=== PATIENT | female | born 1990 | race Caucasian/White ===

== ENCOUNTER → 2021-04-26 14:15 | Outpatient (CLI) | payer SELFPAY ==
--- NOTE | 2021-04-26 14:20 | MR_ITS ---
PROCEDURE: MR HEAD/BRAIN WO CON CLINICAL INDICATION: NEURALGIA OF UPPER EXTREMITY, FAMILY HX OF MS Bilateral arm pain. Pain in neck with flexion and with picking up objects. Symptoms x3wks. No prior. COMPARISON: No exams were available for comparison TECHNIQUE: Routine multiplanar multi echo sequences are performed without gadolinium enhancement. Additional DIR sequences performed as well. FINDINGS: No midline shift, mass effect, intracranial hemorrhage, or hydrocephalus. The cerebellopontine angles, cerebellum, midbrain and brainstem have an unremarkable appearance. The pituitary, optic chiasm, corpus callosum, and craniocervical junction are unremarkable. No abnormal white matter signal intensity. No demyelinating plaques apparent. Double inversion recovery images show no demyelinating plaques. No mastoid effusion or sinus air-fluid level. IMPRESSION: Negative MRI of the brain without contrast Dictated by: John Persaud MD 04/27/2021 07:23 John Persaud MD in [facility] 04/27/2021 07:23
--- NOTE | 2021-04-26 14:20 | MR_ITS ---
PROCEDURE: MR CERVICAL SPINE WO CON CLINICAL INDICATION: NEURALGIA OF UPPER EXTREMITY, FAMILY HX OF MS Bilateral arm pain. Pain in neck with flexion and with picking up objects. Symptoms x3wks. No prior. COMPARISON: No exams were available for comparison TECHNIQUE: Standard multiplanar multiecho sequences are performed without contrast. 3-D MIP and myelographic images are also rendered and reviewed FINDINGS: There is normal alignment. The craniocervical junction has an unremarkable appearance. No disc herniation, canal stenosis, foraminal stenosis, intra or extradural mass, or significant degenerative change apparent. There is mild degree of motion artifact somewhat obscuring fine detail. The spinal cord has an unremarkable appearance. No demyelinating plaques apparent. IMPRESSION: Negative MRI of the cervical spine Dictated by: John Persaud MD 04/27/2021 07:17 John Persaud MD in [facility] 04/27/2021 07:17
== END ==
PROVIDERS: PCP Internal Medicine Adolescent Medicine; Visit Provider Internal Medicine Adolescent Medicine
DX: M79.2 Neuralgia and neuritis, unspecified (principal); Z82.0 Family history of epilepsy and other diseases of the nervous system
CPT/HCPCS: 70551; 72141; 76376

== ENCOUNTER → 2021-08-11 09:14 | Outpatient (CLI) | payer OTHER, BC, SELFPAY | PROVIDERS: PCP Internal Medicine Adolescent Medicine; Visit Provider Nurse Practitioner | DX: Z20.822 Contact with and (suspected) exposure to COVID-19 (principal) | CPT/HCPCS: C9803; U0003; U0005 ==

== ENCOUNTER → 2021-10-28 19:35 | Outpatient (CLI) | payer OTHER, SELFPAY | PROVIDERS: Visit Provider Nurse Practitioner Family | DX: U07.1 COVID-19 (principal); J02.9 Acute pharyngitis, unspecified | CPT/HCPCS: C9803; U0003; U0005 ==

== ENCOUNTER → 2022-12-07 06:42 | Outpatient (CLI) | payer BC, SELFPAY ==
[2022-12-07 07:39] LABS: Adenovirus F 40/41, stool Not Detected (NotDetected); Astrovirus Not Detected (NotDetected); Campylobacter Not Detected (NotDetected); Clostridium Difficile A/B, PCR Not Detected (NotDetected); Cryptosporidium Not Detected (NotDetected); Cyclospora Cayetanesis Not Detected (NotDetected); Entamoeba histolytica Not Detected (NotDetected); Enteroaggregative E coli Not Detected (NotDetected); Enteropathogenic E coli Not Detected (NotDetected); Enterotoxigenic E coli Not Detected (NotDetected); Giardia lamblia Not Detected (NotDetected); Norovirus Not Detected (NotDetected); Plesimonas Shigalloides, PCR Not Detected (NotDetected); Rotavirus A Not Detected (NotDetected); Salmonella, PCR Not Detected (NotDetected); Sapovirus Not Detected (NotDetected); Shiga-like toxin E coli Not Detected (NotDetected); Shigella Enterovasive E coli Not Detected (NotDetected); Vibrio Cholerae Not Detected (NotDetected); Vibrio, PCR Not Detected (NotDetected); Yersinia Entercolitica, PCR Not Detected (NotDetected)
[2022-12-07 07:48] LABS: Basophils % 0.5 % (0.1-2.0); Eosinophils # 0.4 K/mm3 (0.0-0.4); Eosinophils % 5.4 % (0.1-12.0); Hematocrit 37.4 % (37.0-47.0); Hemoglobin 12.4 g/dL (12.2-16.2); Lymphocytes # 2.3 K/mm3 (0.7-4.5); Lymphocytes % 30.1 % (10-50); Mean Corpuscular Hemoglobin 30.3 pg (27.0-31.2); Mean Corpuscular Volume 91.6 fl (81-99); Mean Platelet Volume 8.3 fl (7.4-10.4); Monocytes # 0.4 K/mm3 (0.1-1.0); Monocytes % 4.5 % (1.7-9.3); Neutrophils # 4.6 K/mm3 (1.8-7.8); Neutrophils % 59.5 % (37.0-80.0); Platelet Count 310 K/mm3 (142-424); Red Blood Count 4.09 M/mm3 (4.20-5.40); Red Cell Distribution Width 13.5 % (11.5-17.5); White Blood Count 7.7 K/mm3 (4.8-10.8)
[2022-12-07 08:10] LABS: Chloride 105 mmol/L (98-107); Potassium 4.2 mmoL/L (3.5-5.1); Sodium 138 mmol/L (136-145)
[2022-12-07 08:12] LABS: Amylase 42 U/L (30-110)
[2022-12-07 08:13] LABS: Alanine Aminotransferase 36 U/L (12-78); Albumin Level 4.2 g/dl (3.5-5.0); Albumin/Globulin Ratio 1.6 (1.1-1.8); Alkaline Phosphatase 118 U/L (38-126); Anion Gap 13.2 mEq/L (5-15); Aspartate Amino Transferase 29 U/L (14-36); Bilirubin,Total 0.5 mg/dl (0.2-1.3); Blood Urea Nitrogen 12 mg/dl (7-17); Calcium 8.8 mg/dl (8.4-10.2); Carbon Dioxide 24 mmol/L (22.0-30.0); Estimated Glomerular Filt Rate 98 ml/min (>60); GFR (African American) 119 ML/MIN (>60); Globulin 2.7 g/dL (1.3-3.2); Glucose 104 mg/dl (74-100); HDL Cholesterol 105 mg/dl (40-60); Lipase 82 U/L (23-300); Total Protein,Serum 6.9 g/dl (6.3-8.2)
[2022-12-07 08:14] LABS: Chol/HDL Ratio 1.8 (1-3.5); Cholesterol 193 mg/dl (140-200); Triglycerides 146 mg/dl (30-150); VLDL Cholesterol 29 mg/dL (0-40)
[2022-12-07 08:30] LABS: Direct LDL Cholesterol 78.02 mg/dL (100-129)
[2022-12-13 18:08] LABS: Lactoferrin, Fecal, Quant. 1.29 ug/mL(g) (0.00-7.24)
== END ==
PROVIDERS: PCP Internal Medicine Adolescent Medicine; Visit Provider Internal Medicine Adolescent Medicine
DX: Z00.00 Encounter for general adult medical examination without abnormal findings (principal); R10.84 Generalized abdominal pain; R19.7 Diarrhea, unspecified
CPT/HCPCS: 36415; 80053; 80061; 82150; 83630; 83690; 85025; 87205; 87507

== ENCOUNTER 2023-01-10 09:08 | Day surgery (SDC) | payer BC, SELFPAY ==
[2022-12-28 13:32] VITALS: BMI 36.6
[2023-01-10 09:40] VITALS: BP 122/82; PULSE 85; RESP 18; TEMP 36.6; O2SAT 100
[2023-01-10 09:47] LABS: Urine Pregnancy, HCG Qual. Negative (Negative)
--- NOTE | 2023-01-10 10:16 | EXP.ANES.CKL ---
[facility] Disclaimer: The information contained in this section may have been updated after the patient was seen, as this information can be updated by other users. Medical History Asthma History of gastroesophageal reflux (GERD) Surgical History History of section History of cholecystectomy History of wisdom tooth extraction, class IV edentulism Family History Other No significant family history Social History Smoking Status: Never smoker alcohol intake: current substance use type: denies use current occupational status: employed Travel in the last 8 weeks: None household members: family housing: house marital status: education level: high school caffeine: Yes special ronak needs: No agree to transfusion: No do you feel safe at home: Yes victim of physical abuse: No victim of emotional abuse: No victim of sexual abuse: No would you like helpful sources: No [facility] Anesthesia Checklist Patient Identification Patient Identification: Arm Band and Verbal (Name & ) Structural Data Admitted From: Home Planned Operative Procedure/s: Colonoscopy Consent for Planned Operative Procedure(s) Verified: Yes NPO Status Verified Time NPO: 00:00 Airway Assessment C-Spine Mobility Assessed: Yes TMJ Mobility Assessed: Yes Dentition: Good Dentition Neurological Assessment Level of Consciousness: Awake Hx Seizures: No Numbness or tingling in extremities: No Anesthesia Plan Anesthesia Risk discussed: Yes Anesthesia Plan: Verified ASA Class: II Anesthesia Type: MAC
[2023-01-10 10:19] VITALS: O2SAT 100
[2023-01-10 10:37] VITALS: BP 135/90; PULSE 103; RESP 18; TEMP 36.3; O2SAT 94
--- NOTE | 2023-01-10 10:38 | HMH.SCOPE ---
Procedure: Date: 01/10/23 Patient Date of :: 1990 Procedure Performed:: Colonoscopy Indications:: The patient is a 32 year old who presents for colonoscopy evaluation of diarrhea, urgent desire to stool Performing Provider:: Jaxon Butler MD Referring Provider:: Karel Bautista MD Sedation:: See RN records Procedure:: After placing the patient in the left lateral decubitus position, the colonoscopy was gently inserted into the rectum and under direct visualization advanced to the cecum which was identified by transillumination in the right lower quadrant, identification of the ileocecal valve, appendiceal orifice, and cecal strap. Color, texture, mucosa, and anatomy of the colon were carefully examined with the scope. Findings:: Anal canal: normal Rectum: normal Sigmoid colon: normal without polyps or inflammatory changes Descending colon: normal without polyps or inflammatory changes Splenic flexure: normal Transverse colon: normal without polyps or inflammatory changes Hepatic flexure: normal Ascending colon: normal without polyps or inflammatory changes Cecum: normal Terminal ileum: mild appearing inflammatory changes and irritation. Biopsies obtained Impression: Mild inflammatory changes of terminal ileum Recommendations:: Await pathology results Complications:: None Estimated blood obtained (mL): 0
[2023-01-10 10:47] VITALS: BP 161/97; PULSE 100; RESP 16; O2SAT 97
[2023-01-10 10:57] VITALS: BP 145/82; PULSE 88; RESP 16; O2SAT 99
[2023-01-10 11:07] VITALS: BP 140/77; PULSE 87; RESP 16; TEMP 36.6; O2SAT 100
== END 2023-01-10 11:10 | disposition home or self-care (01) ==
PROVIDERS: PCP Internal Medicine Adolescent Medicine; Visit Provider Internal Medicine
PROC: 0DJD8ZZ Inspection of Lower Intestinal Tract, Via Natural or Artificial Opening Endoscopic (ICD-10-PCS; CPT 45378; principal; 2023-01-10 10:30)
DX: R19.7 Diarrhea, unspecified (principal); Z79.899 Other long term (current) drug therapy
CPT/HCPCS: 45380; 81025; J2704

== ENCOUNTER 2023-12-23 11:05 | Emergency (ER) | payer BC, SELFPAY ==
[2023-12-23 11:45] VITALS: BP 140/95; PULSE 112; RESP 20; TEMP 36.8; O2SAT 97; BMI 35.8
[2023-12-23 11:56] LABS: UTC Influenza A Antigen Negative (Negative); UTC Influenza B Antigen Positive (Negative)
--- NOTE | 2023-12-23 12:06 | ED_ITS ---
Discharge Plan Disposition Patient Disposition: Home, Self-Care Condition: Good Prescriptions Prescriptions: New dextromethorphan polistirex [Delsym 12 hour] 30 mg/5 mL suspension,extended rel 12 hr 10 ml PO Q12H PRN (Reason: cough) Qty: 89 0RF No Action norgestimate-ethinyl estradiol [Sprintec (28)] 0.25-35 mg-mcg tablet 1 tab PO ONCE omeprazole 20 mg capsule,delayed release(DR/EC) 60 mg PO DAILY Patient Comments: TAKE 1 CAPSULE BY MOUTH ONCE DAILY budesonide-formoterol 160-4.5 mcg/actuation HFA aerosol inhaler 160 inh INHALATION DAILY Patient Comments: INHALE 2 PUFFS BY MOUTH TWICE DAILY RINSE MOUTH AFTER EACH USE albuterol sulfate 90 mcg/actuation HFA aerosol inhaler 1 ea inhalation DAILY Patient Comments: INHALE 2 PUFFS BY MOUTH EVERY 6 HOURS NEEDED colestipol 1 gram tablet 1 g PO BID Qty: 120 4RF cetirizine [Zyrtec] 10 mg Tablet 10 mg PO DAILY Referrals Follow up/Referrals: Karel Bautista MD [Primary Care Provider] - See instructions Activity Restrictions/Add. Instructions Additional Instructions/Restrictions: * Too late to start Tamiflu. Most effective when started within 48 hours of symptoms onset * Lots of rest * Increase Fluids water, Gatorade, powerade, pedialyte,if infant/tod dler/child * Alternate Tylenol and / or ibuprofen as discussed for fever, aches, chills Follow up IMMEDIATELY with your family doctor for new or worsening Symptoms OR no noticeable improvement over the next 48-72 hours, 911 for difficulty or breathing * You or your child area contagious until no fever, aches, chills for 24 hours with medication for symptoms * Help Prevent the spread of influenza: * ?Wash your hands often. Use soap and water. Wash your hands after you use the bathroom, change a child's diapers, or sneeze. Wash your hands before you prepare or eat food. Use gel hand cleanser that has 60% alcohol, when soap and water are not available. Do not touch your eyes, nose, or mouth unless you have washed your hands first. * Cover your mouth when you sneeze or cough. Cough into a tissue or the bend of your arm. If you use a tissue, throw it away immediately and wash your hands. * Clean shared items with a germ-killing office cleaner. Clean table surfaces, doorknobs, and light switches. Do not share towels, silverware, and dishes with people who are sick. Wash bed sheets, towels, silverware, and dishes with soap and water. * Wear a mask over your mouth and nose if you are sick. The face mask may help protect others from becoming infected with the flu. Wear the mask when in common areas of your home or if you seek care with a healthcare provider. * Stay away from others if you are sick. Stay at home until 24 hours after your fever and symptoms are gone. Clinical Impressions Clinical Impression: Influenza Stand Alone Forms Stand Alone Forms: Work/School Release Instructions Patient Instructions: DI for Influenza -- Adult, Influenza Discharge ED Provider: Carol Pastrana [facility] General Stated complaint: Sor throat, body aches, cough, Mode of Arrival: Ambulatory Source of Information: Patient Limitations: No Limitations Time Seen by Provider: 12/23/23 12:06 Description of Symptoms (Recalled from Triage Doc. by RN): PATIENT C/O BODY ACHES, CHILLS, SORE THROAT, HEADACHE, VOMITING, AND COUGH SINCE SUNDAY. SHE STATES SHE IS BEING TREATED FOR STREP BUT IS NOT BETTER HEENT Symptoms (Recalled from RN notes): Yes Resp Symptoms (Recalled from RN notes): Yes Skin Symptoms (Recalled from RN notes): No MS Symptoms (Recalled from RN notes): No Functional Status (Recalled from RN notes): WNL History of Present Illness Provider Complaint: Patient states that she started feeling bad on Sun and she went to the Doctor on having fever, chills sore throat, body aches, and headache States she was tested for flu and strep throat and was positive for strep States that she has been taking her medication but still having body ache, nasal congestion and headaches feels like she may have flu also now Related Data Home Medications Medication Instructions Recorded Confirmed norgestimate 0.25 mg-ethinyl 1 tab PO ONCE control 02/26/18 12/23/23 estradiol 35 mcg tablet (Sprintec (28)) budesonide-formoterol HFA 160 160 inh inhalation DAILY Asthma 11/06/19 12/23/23 mcg-4.5 mcg/actuation aerosol inhaler omeprazole 20 mg capsule,delayed 60 mg PO DAILY Reflux/Acid reflux 11/06/19 12/23/23 release albuterol sulfate 90 mcg/actuation 1 ea inhalation DAILY 01/18/23 12/23/23 aerosol inhaler cetirizine 10 mg tablet (Zyrtec) 10 mg PO DAILY 12/23/23 12/23/23 Previous Rx's Medication Instructions Recorded colestipol 1 gram tablet 1 g PO BID #120 tabs 01/18/23 dextromethorphan polistirex 30 10 ml PO Q12H PRN cough #89 mL 12/23/23 mg/5 mL oral susp ext.release 12hr (Delsym 12 hour) Allergies Allergy/AdvReac Type Severity Reaction Status Date / Time Penicillins Allergy Mild Verified 01/18/23 14:20 Worker's Comp Is this a Worker's Comp case?: No [facility] Disclaimer: The information contained in this section may have been updated after the patient was seen, as this information can be updated by other users. Medical History Asthma History of gastroesophageal reflux (GERD) Surgical History History of section History of cholecystectomy History of wisdom tooth extraction, class IV edentulism Family History Other No significant family history Social History Smoking Status: Never smoker alcohol intake: current substance use type: denies use current occupational status: employed Travel in the last 8 weeks: None household members: family housing: house marital status: education level: high school caffeine: Yes special ronak needs: No agree to transfusion: No do you feel safe at home: Yes victim of physical abuse: No victim of emotional abuse: No victim of sexual abuse: No would you like helpful sources: No ROS Obtained: Yes All systems reviewed & no additional complaints except as d ocumented and Yes Systems reviewed as appropriate & no additional complaints except as documented Constitutional Constitutional: Reports system reviewed and no additional complaints, except as documented, Reports as per HPI, Reports body ache, Reports chills, Reports fever(s) and Reports headache(s) ENT Ears, Nose, Mouth, and Throat: Reports system reviewed and no additional complaints, except as documented, Reports as per HPI, Reports headache(s), Reports nasal congestion and Reports sore throat Cardiovascular Cardiovascular: Reports system reviewed and no additional complaints, except as documented and Reports as per HPI Respiratory Respiratory: Reports system reviewed and no additional complaints, except as documented, Reports as per HPI and Reports cough Gastrointestinal Gastrointestingal: Reports system reviewed and no additional complaints, except as documented and as per HPI Neurologic Neurologic: Reports headache(s) Physical Exam General General appearance: alert and in no apparent distress ENT ENT exam: Present mucous membranes moist Expanded ENT Exam Nose exam: Absent sinus tenderness Respiratory Respiratory exam: Present normal lung sounds bilaterally; Absent respiratory distress or wheezes Cardiovascular Cardiovascular exam: Present regular rate, normal rhythm and tachycardia Neurological Exam Neurological exam: Present alert, oriented X3 and normal gait Medical Decision Making Sánchez Inquiry Pt receiving controlled substance: No Sánchez was queried for this patient: No Vital Signs: 12/23/23 11:45 Temperature 98.3 F Temperature Source Oral Pulse Rate [Left Brachial] 112 H Respiratory Rate 20 Blood Pressure [Left Arm] 140/95 H Blood Pressure Mean [Left Arm] 110 Blood Pressure Source [Left Arm] Automatic Cuff Blood Pressure Position [Left Arm] Sitting 02 Sat by Pulse Oximetry 97 Oxygen Delivery Method Room Air Lab Data Lab results reviewed: Yes I reviewed the patient's lab results. Lab Results 12/23/23 11:53: Influenza Type A Ag Negative, Influenza Type B Ag Positive A
[2023-12-23 12:09] VITALS: BP 140/95; PULSE 112; RESP 20; TEMP 36.8; O2SAT 97
== END 2023-12-23 12:15 | disposition home or self-care (01) ==
PROVIDERS: Emergency Provider Nurse Practitioner; PCP Internal Medicine Adolescent Medicine
DX: J10.1 Influenza due to other identified influenza virus with other respiratory manifestations (principal); R51.9 Headache, unspecified; R05.9 Cough, unspecified; R50.9 Fever, unspecified; R09.81 Nasal congestion; R07.0 Pain in throat; M79.18 Myalgia, other site; K21.9 Gastro-esophageal reflux disease without esophagitis
CPT/HCPCS: 87804; 99204; 99212; G0463

== ENCOUNTER 2024-02-22 15:35 | Outpatient (CLI) | payer BC, SELFPAY ==
--- NOTE | 2024-02-22 15:41 | XR_ITS ---
FINAL REPORT CLINICAL HISTORY: MILD INTERMITTENT ASTHMA WITH EXACERBATION FINDINGS: No acute pulmonary density is evident. There is no evidence of effusion or other pleural disease. The mediastinum has a normal appearance. The cardiac silhouette is unremarkable. IMPRESSION: Unremarkable chest exam. Reviewed, Interpreted and Dictated by Alexi Duckworth MD Transcribed by Mae Huizar Authenticated and [facility]
== END 2024-02-22 23:59 | disposition home or self-care (01) ==
LOC: RAD 15:37
PROVIDERS: PCP Physician Assistant; Visit Provider Physician Assistant
DX: J45.20 Mild intermittent asthma, uncomplicated (principal)
CPT/HCPCS: 71046

== ENCOUNTER 2024-03-29 08:56 | Emergency (ER) | payer BC, SELFPAY ==
[2024-03-29 09:05] VITALS: BP 147/95; PULSE 84; RESP 18; TEMP 36.8; O2SAT 99; BMI 37.3
[2024-03-29 09:32] LABS: UTC Strep Screen (Rapid) Negative (Negative)
--- NOTE | 2024-03-29 09:39 | ED_ITS ---
Discharge Plan Disposition Patient Disposition: Home, Self-Care Condition: Good Prescriptions Prescriptions: New azithromycin 250 mg tablet 250 mg PO DIRECTED Qty: 6 0RF Rx Instructions: Take two (2) tablets on day #1, then one (1) tablet day #2 thru #5 No Action norgestimate-ethinyl estradiol [Sprintec (28)] 0.25-35 mg-mcg tablet 1 tab PO ONCE omeprazole 20 mg capsule,delayed release(DR/EC) 60 mg PO DAILY Patient Comments: TAKE 1 CAPSULE BY MOUTH ONCE DAILY budesonide-formoterol 160-4.5 mcg/actuation HFA aerosol inhaler 160 inh INHALATION DAILY Patient Comments: INHALE 2 PUFFS BY MOUTH TWICE DAILY RINSE MOUTH AFTER EACH USE albuterol sulfate 90 mcg/actuation HFA aerosol inhaler 1 ea inhalation DAILY Patient Comments: INHALE 2 PUFFS BY MOUTH EVERY 6 HOURS NEEDED colestipol 1 gram tablet 1 g PO BID Qty: 120 4RF cetirizine [Zyrtec] 10 mg Tablet 10 mg PO DAILY dextromethorphan polistirex [Delsym 12 hour] 30 mg/5 mL suspension,extended rel 12 hr 10 ml PO Q12H PRN (Reason: cough) Qty: 89 0RF Referrals Follow up/Referrals: Ella Murguia PA [Primary Care Provider] - See instructions Activity Restrictions/Add. Instructions Additional Instructions/Restrictions: Start antibiotics today be sure to take it as ordered with the full length of time although you should start feeling better in 24-48 hours. Change toothbrush and toothpaste 24-48 hours after starting antibiotics Tylenol or Motrin as needed for fever or pain Encourage fluids, water, Gatorade, Powerade, try cold fluids, popsicles, ice cream will make it feel better You are contagious for 24 hours. Avoid kissing anyone, no eating or drinking after anyone. You are contagious. Follow-up the ER for new or worsening symptoms or no noticeable improvement over the next 24-48 hours. Follow-up with PCP this week. Clinical Impressions Clinical Impression: Strep sore throat Instructions Patient Instructions: DI for Strep Throat Discharge ED Provider: Mariia ([facility] [place])Sly [facility] HPI General Stated complaint: sore throat Mode of Arrival: Ambulatory Source of Information: Patient Limitations: No Limitations Time Seen by Provider: 03/29/24 09:39 Description of Symptoms (Recalled from Triage Doc. by RN): PATIENT C/O SORE THROAT, RUNNY NOSE AND EAR PAIN X 2 DAYS HEENT Symptoms (Recalled from RN notes): Yes Resp Symptoms (Recalled from RN notes): No Skin Symptoms (Recalled from RN notes): No MS Symptoms (Recalled from RN notes): No Functional Status (Recalled from RN notes): WNL History of Present Illness Provider Complaint: 34 yr old female presents for sore throat, ear pain and runny nose for 2 days, hx strep and states feels like it does when she has strep Related Data Home Medications Medication Instructions Recorded Confirmed norgestimate 0.25 mg-ethinyl 1 tab PO ONCE control 02/26/18 12/23/23 estradiol 35 mcg tablet (Sprintec (28)) budesonide-formoterol HFA 160 160 inh inhalation DAILY Asthma 11/06/19 12/23/23 mcg-4.5 mcg/actuation aerosol inhaler omeprazole 20 mg capsule,delayed 60 mg PO DAILY Reflux/Acid reflux 11/06/19 12/23/23 release albuterol sulfate 90 mcg/actuation 1 ea inhalation DAILY 01/18/23 12/23/23 aerosol inhaler cetirizine 10 mg tablet (Zyrtec) 10 mg PO DAILY 12/23/23 12/23/23 Previous Rx's Medication Instructions Recorded colestipol 1 gram tablet 1 g PO BID #120 tabs 01/18/23 dextromethorphan polistirex 30 10 ml PO Q12H PRN cough #89 mL 12/23/23 mg/5 mL oral susp ext.release 12hr (Delsym 12 hour) azithromycin 250 mg tablet 250 mg PO DIRECTED #6 tabs 03/29/24 Allergies Allergy/AdvReac Type Severity Reaction Status Date / Time Penicillins Allergy Mild Verified 01/18/23 14:20 Worker's Comp Is this a Worker's Comp case?: No [facility] Disclaimer: The information contained in this section may have been updated after the patient was seen, as this information can be updated by other users. Medical History , [employer]) Asthma History of gastroesophageal reflux (GERD) Surgical History , [employer]) History of wisdom tooth extraction, class IV edentulism History of cholecystectomy History of section Family History , [employer]) No significant family history Social History , [employer]) Smoking Status: Never smoker alcohol intake: current alcohol intake frequency: holidays/special occasions only substance use type: denies use current occupational status: employed Travel in the last 8 weeks: None household members: family housing: house marital status: education level: high school caffeine: Yes special ronak needs: No agree to transfusion: No do you feel safe at home: Yes victim of physical abuse: No victim of emotional abuse: No victim of sexual abuse: No would you like helpful sources: No ROS Obtained: Yes All systems reviewed & no additional complaints except as documented Constitutional Constitutional: Reports system reviewed and no additional complaints, except as documented Eyes Eyes: Reports system reviewed and no additional complaints, except as documented ENT Ears, Nose, Mouth, and Throat: Reports system reviewed and no additional complaints, except as documented, Reports as per HPI, Reports otalgia and Reports sore throat Cardiovascular Cardiovascular: Reports system reviewed and no additional complaints, except as documented Respiratory Respiratory: Reports system reviewed and no additional complaints, except as documented Gastrointestinal Gastrointestingal: Reports system reviewed and no additional complaints, except as documented Musculoskeletal Musculoskeletal: Reports system reviewed and no additional complaints, except as documented Integumentary/Breasts Skin/Breast: Reports system reviewed and no additional complaints, except as documented Neurologic Neurologic: Reports system reviewed and no additional complaints, except as documented Endocrine Endocrine: Reports system reviewed and no additional complaints, except as documented Hematologic/Lymphatic Henatologic/Lymphatic: Reports system reviewed and no additional complaints, except as documented Allergic/Immunologic Allergic/Immunologic: Reports system reviewed and no additional complaints, except as documented Physical Exam General General appearance: alert and in no apparent distress Eye Eye exam: Present normal appearance and PERRL ENT ENT exam: Present mucous membranes moist and TM's normal bilaterally Expanded ENT Exam Throat exam: Present tonsillar erythema, tonsillomegaly and tonsillar exudate Respiratory Respiratory exam: Present normal lung sounds bilaterally Cardiovascular Cardiovascular exam: Present regular rate and normal rhythm Neurological Exam Neurological exam: Present alert and oriented X3 Skin Skin exam: Present warm and intact Medical Decision Making Medical Records Medical records reviewed: Yes I reviewed the patient's medical records. Sáncehz Inquiry Pt receiving controlled substance: No Sánchez was queried for this patient: No Vital Signs: 03/29/24 09:05 Temperature 98.2 F Temperature Source Oral Pulse Rate [Left Brachial] 84 Respiratory Rate 18 Blood Pressure [Left Arm] 147/95 H Blood Pressure Mean [Left Arm] 112 Blood Pressure Source [Left Arm] Automatic Cuff Blood Pressure Position [Left Arm] Sitting 02 Sat by Pulse Oximetry 99 Oxygen Delivery Method Room Air Lab Data Lab results reviewed: Yes I reviewed the patient's lab results. Lab Results 03/29/24 09:26: Strep Scn Rapid Clinic Negative Orders (Tests/Meds): ORDERS Category Date Time Status Strep Screen Confirmation Stat Micro 03/29/24 09:26 Received
[2024-03-29 09:52] VITALS: BP 147/95; PULSE 84; RESP 18; TEMP 36.8; O2SAT 99
== END 2024-03-29 09:57 | disposition home or self-care (01) ==
PROVIDERS: Emergency Provider Nurse Practitioner Family; PCP Physician Assistant
DX: J02.0 Streptococcal pharyngitis (principal); R07.0 Pain in throat; H92.03 Otalgia, bilateral; R09.81 Nasal congestion
CPT/HCPCS: 87880; 99212; 99214; G0463

== ENCOUNTER 2024-12-10 09:55 | Outpatient (CLI) | payer BC, SELFPAY ==
[2024-12-10 15:56] LABS: Coronavirus 19, PCR Not Detected (NotDetected); Influenza A, PCR Not Detected (NotDetected); Influenza B, PCR Not Detected (NotDetected)
== END 2024-12-10 23:59 | disposition home or self-care (01) ==
LOC: LAB.DROPOF 12-11 09:24
PROVIDERS: PCP Nurse Practitioner; Visit Provider Nurse Practitioner
DX: J02.9 Acute pharyngitis, unspecified (principal); R50.9 Fever, unspecified
CPT/HCPCS: 87636

== ENCOUNTER 2025-04-23 07:22 | Outpatient (CLI) | payer BC, SELFPAY ==
--- NOTE | 2025-04-23 07:24 | US_ITS ---
FINAL REPORT CLINICAL HISTORY: ELEVATED LIVER ENZYMES COMPARISON: None FINDINGS: ULTRASOUND ABDOMEN LIMITED: The gallbladder has been surgically resected. There is increased echogenicity within the liver, which most likely represent fatty infiltration of the liver. The common bile duct is normal in size and measures 6 mm. The pancreas is obscured by overlying bowel gas. The right kidney is unremarkable in appearance. IMPRESSION: Prior cholecystectomy, without biliary ductal dilatation. Fatty infiltration of the liver. Reviewed, Interpreted and Dictated by Girma Venegas MD Transcribed by Marichuy Rowe Authenticated and [facility]
--- OUTSIDE RECORDS SUMMARY | 2025-04-23 07:24 | XMS_ITS | Patient Health Record ---
Author Organization [id number] [facility] Address [address] [facility] [address] [place], [place] [id number] Support Name Relationship Address Phone raghu montez Guarantor Unknown [phone] Reason For Referral No Information Plan Of Treatment No Information Insurance Providers Payer Name Payer Address Payer Phone Subscriber Number Group Number Insured Name Patient Relationship to Insured Coverage Start Date Coverage End Date [facility] [address] [place], [place] [id number] Christa Montez Self - patient is the insured 3
== END 2025-04-23 23:59 | disposition home or self-care (01) ==
LOC: RAD 07:22
PROVIDERS: PCP Internal Medicine Adolescent Medicine; Visit Provider Internal Medicine Adolescent Medicine
DX: K76.0 Fatty (change of) liver, not elsewhere classified (principal); Z90.49 Acquired absence of other specified parts of digestive tract
CPT/HCPCS: 76705